=== PATIENT | female | born 1985 | race Caucasian/White ===

== ENCOUNTER 2023-07-28 08:10 | Emergency (ER) | payer OTHER, SELFPAY ==
--- NOTE | 2023-07-28 08:36 | DI.CT.S_ITS ---
PROCEDURE: CT ABDOMEN PELVIS W CON INDICATIONS: IV contrast only/periumbilical pain TECHNIQUE: After the administration of intravenous contrast, axial sections acquired from the lung bases to the pubic symphysis. Coronal and sagittal reformats were performed. For radiation dose reduction, the following was used: automated exposure control, adjustment of mA and/or kV according to patient size. COMPARISON: None. FINDINGS: Image quality: Diagnostic. Superior portions of the liver are outside the field of view. Lower Chest: Asymmetric elevation of the right hemidiaphragm. No pleural effusion. Possible pectus deformity. ABDOMEN: Liver: No solid mass. Superior portions of the liver are outside the field of view. Gallbladder: Decompressed. No calcified gallstones. Biliary ducts: No biliary dilation. Pancreas: No ductal dilation. Spleen: Size is within normal limits. Adrenal Glands: No adrenal nodules. Kidneys and Ureters: No hydronephrosis. No solid mass. No complex renal cystic lesion which requires follow up. Stomach and Bowel: Normal colonic caliber, without significant wall thickening. The appendix is not dilated. Peritoneum: No abnormal intraperitoneal fluid. No free air. Ventral Wall: Tiny fat containing umbilical hernia suspected. No periumbilical inflammatory change or fluid collection. Abdominal Nodes: No retroperitoneal or mesenteric adenopathy by size criteria. Vessels: Aorta and inferior vena cava are normal in size. PELVIS: Pelvic Organs: Uterus is absent. Bladder: No stone. Pelvic Nodes: No enlarged lymph nodes. Miscellaneous: No inguinal hernias are seen. Bones: No aggressive osseous abnormality. IMPRESSION: No acute abnormality identified. No free fluid. Tiny fat containing umbilical hernia suspected. Dictated by: Christian Ahmadi M.D. on 07/28/2023 at 9:36 Approved by: Christian Ahmadi M.D. on 07/28/2023 at 9:43
[2023-07-28 08:38] VITALS: BP 117/66; PULSE 78; RESP 19; TEMP 36.8; O2SAT 96; BMI 26.1
--- NOTE | 2023-07-28 08:38 | ED.GENADULT ---
HPI - General Adult General Chief complaint: Abdominal Pain Stated complaint: thinks unbilical hernia/something weird in eye too Time Seen by Provider: 07/28/23 08:30 History of Present Illness HPI narrative: Patient here for right eye redness/tearing/discomfort. Patient states this started yesterday evening/this morning. Patient does wear contact lenses but has not been wearing them for the past few days. Last seen by Optometry 1 year ago for prescription were her eye glasses and contacts. Denies any injury or stress to the eye. Has not been sleeping with the contact lenses. They are daily contact lenses. Patient also complained 3 days of periumbilical discomfort. History of laparoscopic tubal ligation and hysterectomy. Hysterectomy was done about 2 years ago. She states it is possible that she does have a umbilical hernia from 1 of the port sites. No nausea or vomiting. No urinary complaints. Right eye is injected with watery discharge. She states she did have some crusting of the eyelashes this morning. Related Data Previous Rx's Medication Instructions Recorded moxifloxacin 0.5 % eye drops 1 drp EYE-RIGHT .2 hours #3 mL 07/28/23 Allergies Allergy/AdvReac Type Severity Reaction Status Date / Time No Known Drug Allergies Allergy Verified 07/28/23 08:47 Review of Systems Review of Systems Narrative: GENERAL: negative chills, fatigue, malaise, fever, sweats. HEENT: negative sinus pain, ear pain, sore throat, positive eye redness/discharge RESPIRATORY: negative dyspnea, cough CARDIOVASCULAR: negative chest pain, palpitations GASTROINTESTINAL: negative nausea, vomiting, positive abdominal pain : negative dysuria, frequency, hematuria MUSCULOSKELETAL: negative muscle or bony pain SKIN: negative rash, skin lesions NEUROLOGIC: negative weakness, numbness ROS Unobtainable: All systems reviewed & are unremarkable except as noted in HPI and below Patient History Social History Smoking Status: Never smoker Exam Narrative Exam Narrative: GENERAL: in no distress, not toxic not dyspneic HEAD: Normocephalic. EYES: Pupils equal round right eye exam does show injected sclera and conjunctiva, there is clear watery discharge. PERRLA/EOMI, patient has slight photophobic with funduscope. Proparacaine fluorescein Wood's lamp slit-lamp use for exam, there is fluorescein uptake at the 5 o'clock position of the cornea. It is about 2 mm in diameter. No foreign body seen. No dendritic lesions. Pain was relieved with proparacaine. Visual acuity with eyeglasses right eye 20/20, both eyes together 20/13. No pain with eye movement. ENT: Mucous membranes moist. NECK: Trachea midline. CARDIOVASCULAR: Regular rate and rhythm RESPIRATORY: Clear to auscultation. Breath sounds equal bilaterally. No wheezes, rales, or rhonchi. GASTROINTESTINAL: Abdomen soft, non-tender, abdomen is soft flat nontender. With sitting up/using abdominal muscles, no palpable hernia on the umbilicus. Bowel sounds are present. No peritoneal signs. EXTREMITIES: No gross deformities. BACK: No flank tenderness. NEURO: AOx4. SKIN: Warm and dry PSYCH: Not anxious, is cooperative Initial Vital Signs Initial Vital Signs: Vital Signs Temperature 98.3 F 07/28/23 08:38 Pulse Rate 78 07/28/23 08:38 Respiratory Rate 19 07/28/23 08:38 Blood Pressure 117/66 07/28/23 08:38 Pulse Oximetry 96 07/28/23 08:38 Oxygen Delivery Method Room Air 07/28/23 08:38 Course Orders Ordered: ED Orders 07/28/23 08:36 CT abdomen pelvis w con Stat 07/28/23 09:10 Complete Blood Count AUTO DIFF Stat Comprehensive Metabolic Panel Stat Discontinued Medications Fluorescein Sodium (Fluorescein 1 Mg Strip) 1 mg EYE-RIGHT NOW ONE Stop: 07/28/23 08:36 Last Admin: 07/28/23 09:17 Dose: 1 mg Documented By: SPF Sodium Chloride (Normal Saline 0.9%) 500 mls @ 1,000 mls/hr IV BOLUS ONE Stop: 07/28/23 09:05 Last Infusion: 07/28/23 10:14 Dose: Infused Documented By: Admin: 07/28/23 09:18 Dose: 1,000 mls/hr Documented By: SPF Ofloxacin (Ofloxacin 0.3% Ophth 5 Ml) 1 drops EYE-RIGHT NOW ONE Stop: 07/28/23 08:56 Last Admin: 07/28/23 09:32 Dose: 1 drop Documented By: SPF Proparacaine HCl (Proparacaine 0.5% Ophth [place]) 1 drops EYE-RIGHT NOW ONE Stop: 07/28/23 08:36 Last Admin: 07/28/23 08:45 Dose: 1 drop Documented By: BAM Vital Signs Vital signs: Vital Signs - 8 hr 07/28/23 08:38 07/28/23 09:30 07/28/23 10:00 Temperature 98.3 F Pulse Rate 78 60 67 Respiratory Rate 19 16 Blood Pressure 117/66 Pulse Oximetry 96 100 100 Oxygen Delivery Method Room Air Room Air 07/28/23 10:00 07/28/23 10:30 07/28/23 10:30 Temperature Pulse Rate 57 L Respiratory Rate Blood Pressure 109/62 106/64 Pulse Oximetry 100 Oxygen Delivery Method 07/28/23 10:47 Temperature 97.9 F Pulse Rate 70 Respiratory Rate 16 Blood Pressure 106/64 Pulse Oximetry 100 Oxygen Delivery Method Room Air Medical Decision Making Lab Data 07/28/23 09:10 07/28/23 09:10 Labs: Lab Results 07/28/23 Range/Units 09:10 WBC 4.6 (4.5-11.0) X10^3/uL RBC 4.99 (4.0-5.2) X10^6/uL Hgb 14.9 (12.0-16.0) g/dL Hct 43.7 (36-46) % MCV 87.6 (80-100) fL MCH 29.9 (26-34) PG MCHC 34.1 (30-36) % RDW 12.8 (11.6-14.8) % Plt Count 187 (150-400) X10^3/uL Neut % (Auto) 56.6 (50-75) % Lymph % (Auto) 36.1 (25-40) % [place] % (Auto) 4.7 (3-14) % Eos % (Auto) 1.8 L (2-4) % Baso % (Auto) 0.8 (0-2) % Neut # (Auto) 2600 (9290-0415) /uL Lymph # (Auto) 1600 (8884-0498) /uL [place] # (Auto) 200 (0-900) /uL Eos # (Auto) 100 (0-450) /uL Baso # (Auto) 0 (0-100) /uL Sodium 137 (137-145) mmol/L Potassium 4.4 (3.4-5.1) mmol/L Chloride 105 (98-107) mmol/L Carbon Dioxide 29 (22-32) mmol/L BUN 14 (7-17) mg/dL Creatinine 0.71 (0.52-1.04) mg/dL Estimated GFR > 60 (>60) mL/min BUN/Creatinine Ratio 19.7 (6-22) Glucose 96 (70-100) mg/dL Calcium 9.4 (8.4-10.2) mg/dL Total Bilirubin 1.0 (0.2-1.3) mg/dL AST 22 (14-36) IU/L ALT 14 (<35) IU/L Alkaline Phosphatase 59 (38-126) U/L Total Protein 8.2 (6.3-8.2) g/dL Albumin 4.7 (3.5-5.0) g/dL Globulin 3.5 (1.7-4.1) g/dL Albumin/Globulin Ratio 1.3 (1.0-2.8) Imaging Data CT scan - abdomen/pelvis: Radiologist's Impression: [place] [address] CT Scan Report Signed Patient: Bekah Haney MR#: [id number] : 1985 Acct:[id number] Age/Sex: 37 / F Date of Service: 07/28/23 Loc: ED Accession Number: [id number] Procedure: CT abdomen pelvis w con Ordering Provider: Arnulfo Zamora MD PROCEDURE: CT ABDOMEN PELVIS W CON INDICATIONS: IV contrast only/periumbilical pain TECHNIQUE: After the administration of intravenous contrast, axial sections acquired from the lung bases to the pubic symphysis. Coronal and sagittal reformats were performed. For radiation dose reduction, the following was used: automated exposure control, adjustment of mA and/or kV according to patient size. COMPARISON: None. FINDINGS: Image quality: Diagnostic. Superior portions of the liver are outside the field of view. Lower Chest: Asymmetric elevation of the right hemidiaphragm. No pleural effusion. Possible pectus deformity. ABDOMEN: Liver: No solid mass. Superior portions of the liver are outside the field of view. Gallbladder: Decompressed. No calcified gallstones. Biliary ducts: No biliary dilation. Pancreas: No ductal dilation. Spleen: Size is within normal limits. Adrenal Glands: No adrenal nodules. Kidneys and Ureters: No hydronephrosis. No solid mass. No complex renal cystic lesion which requires follow up. Stomach and Bowel: Normal colonic caliber, without significant wall thickening. The appendix is not dilated. Peritoneum: No abnormal intraperitoneal fluid. No free air. Ventral Wall: Tiny fat containing umbilical hernia suspected. No periumbilical inflammatory change or fluid collection. Abdominal Nodes: No retroperitoneal or mesenteric adenopathy by size criteria. Vessels: Aorta and inferior vena cava are normal in size. PELVIS: Pelvic Organs: Uterus is absent. Bladder: No stone. Pelvic Nodes: No enlarged lymph nodes. Miscellaneous: No inguinal hernias are seen. Bones: No aggressive osseous abnormality. IMPRESSION: No acute abnormality identified. No free fluid. Tiny fat containing umbilical hernia suspected. Dictated by: Christian Ahmadi M.D. on 07/28/2023 at 9:36 Approved by: Christian Ahmadi M.D. on 07/28/2023 at 9:43 MDM Narrative Medical decision making narrative: Patient here for right eye redness/tearing/discomfort. Patient states this started yesterday evening/this morning. Patient does wear contact lenses but has not been wearing them for the past few days. Last seen by Optometry 1 year ago for prescription were her eye glasses and contacts. Denies any injury or stress to the eye. Has not been sleeping with the contact lenses. They are daily contact lenses. Patient also complained 3 days of periumbilical discomfort. History of laparoscopic tubal ligation and hysterectomy. Hysterectomy was done about 2 years ago. She states it is possible that she does have a umbilical hernia from 1 of the port sites. No nausea or vomiting. No urinary complaints. Right eye is injected with watery discharge. She states she did have some crusting of the eyelashes this morning. After history and exam proparacaine fluorescein slit-lamp Wood's lamp visual acuity, CBC CMP CT abdomen pelvis normal saline MDM Medical records reviewed: No recent visit for this complaint Differential considered: Includes but not limited to corneal abrasion foreign body/ulceration, appendicitis umbilical hernia Lab Test results independently reviewed as above. Pertinent findings: WBC 4.6 hemoglobin 14.9 sodium 137 potassium 4.4 AST 22 ALT 14 Imaging studies independently reviewed: CT abdomen pelvis no acute finding, possible small fat containing umbilical hernia Consultations: 10:30 a.m. spoke with [facility] ophthalmology Dr. Todd, she would like patient to switch over to moxifloxacin 2 drops every 2 hours for 48 hours including nighttime. Her office will call patient tomorrow to make appointment within 48 hours to be seen. May use artificial tears as well. I did give her patient's correct phone number [phone], transfer center also wrote this down. Treatments: Ofloxacin eyedrops/normal saline Re-evaluations: 10:11 a.m.. Updated patient results. Her eye discomfort feels much better she states. Reviewed results with her however still awaiting for [facility] ophthalmology services to call back 10:42 a.m.. Updated patient might discussion with ophthalmology services. She will have to get up in the middle of the night every 2 hours for the eyedrops. She understands. Office call her tomorrow. Dr. Elena lagos is not on-call but sometimes they can help out as a backup. Work note provided. Pain is controlled. She desires discharge home Discussion: Appropriate for discharge home for follow up with Ophthalmology and General surgery Services. Antibiotics have been started. Pain is controlled. Return precautions reviewed with patient. She is very comfortable with treatment plan. She desires discharge home Diagnosis: Corneal ulcer/umbilical hernia Discharge Plan Departure Patient Disposition: Home Clinical Impression: Corneal ulcer of right eye Hernia, umbilical Qualifiers: Obstruction and gangrene presence: without obstruction or gangrene Qualified Code(s): K42.9 - Umbilical hernia without obstruction or gangrene Instructions: DI for Ventral Hernia, DI for Corneal Ulcer Activity Restrictions/Additional Instructions: Please call provided general surgery office with Dr. Person regarding the fat containing umbilical hernia for continued monitoring. No surgery indicated at this time. Exam and CT scan imaging is reassuring at this time as well as blood work. [facility] ophthalmology services has been contacted today. They will call you on your cell phone to be seen in their office within the next 48 hours. Prescription antibiotic drops has been printed for you to continue today. You must place 1 drop to the right eye every 2 hours for the next 48 hours until office appointment time. These are the instructions by ophthalmology services. You must get up at nighttime for me to sleep. You may also use [id number] artificial tears for comfort. Do not wear your contact lenses until instructed by ophthalmology services. As a backup follow up provider ophthalmology services, Dr. Elena lagos office may be able to help, call them in the morning Prescriptions: New moxifloxacin 0.5 % drops 1 drp EYE-RIGHT .2 hours Qty: 3 0RF Rx Instructions: Place 1 drop in the right eye every 2 hours for the next 48 hours. Referrals: Elena Lagos MD [Physician] - Patricia Person MD [Physician] - Provider,Amy BURNS [Primary Care Provider] - Stand Alone Forms: Patient Portal/API, Work Release Note
[2023-07-28] MEDS: PROPARACAINE 0.5% OPHTH SOL 1 DROPS EYE-RIGHT (08:45)
[2023-07-28 09:15] LABS: Add Manual Diff / Slide Review NO; Basophils Absolute Auto 0 /uL (0-100); Basophils Percent Auto 0.8 % (0-2); Eosinophils Absolute Auto 100 /uL (0-450); Eosinophils Percent Auto 1.8 % (2-4); Hematocrit 43.7 % (36-46); Hemoglobin 14.9 g/dL (12.0-16.0); Lymphocytes Absolute Auto 1600 /uL (1100-4500); Lymphocytes Percent Auto 36.1 % (25-40); Mean Corpuscular HGB Conc 34.1 % (30-36); Mean Corpuscular Hemoglobin 29.9 PG (26-34); Mean Corpuscular Volume 87.6 fL (80-100); Monocytes Absolute Auto 200 /uL (0-900); Monocytes Percent Auto 4.7 % (3-14); Neutrophils Absolute Auto 2600 /uL (1500-7000); Neutrophils Percent Auto 56.6 % (50-75); Platelet Count 187 X10^3/uL (150-400); Red Blood Cell Count 4.99 X10^6/uL (4.0-5.2); Red Cell Distribution Width 12.8 % (11.6-14.8); White Blood Cell Count 4.6 X10^3/uL (4.5-11.0)
[2023-07-28] MEDS: FLUORESCEIN 1 MG STRIP EYE-RIGHT (09:17)
[2023-07-28] MEDS: SODIUM CHLORIDE 0.9% 500 ML 1000 ML IV (09:18)
[2023-07-28 09:27] LABS: Alanine Aminotransferase 14 IU/L (<35); Albumin 4.7 g/dL (3.5-5.0); Albumin Globulin Ratio 1.3 (1.0-2.8); Alkaline Phosphatase 59 U/L (38-126); Aspartate Aminotransferase 22 IU/L (14-36); BUN Creatinine Ratio 19.7 (6-22); Blood Urea Nitrogen 14 mg/dL (7-17); Calcium 9.4 mg/dL (8.4-10.2); Carbon Dioxide 29 mmol/L (22-32); Chloride 105 mmol/L (98-107); Estimated Glomerular Filt Rate > 60 mL/min (>60); Globulin 3.5 g/dL (1.7-4.1); Glucose 96 mg/dL (70-100); HEMOLYSIS < 15 (0-50); Potassium 4.4 mmol/L (3.4-5.1); Sodium 137 mmol/L (137-145); Total Protein 8.2 g/dL (6.3-8.2)
[2023-07-28 09:30] VITALS: PULSE 60; RESP 16; O2SAT 100
[2023-07-28] MEDS: OFLOXACIN 0.3% OPHTH 5 ML 1 DROPS EYE-RIGHT (09:32)
[2023-07-28 10:00] VITALS: BP 109/62; PULSE 67; O2SAT 100
[2023-07-28 10:30] VITALS: BP 106/64; PULSE 57; O2SAT 100
[2023-07-28 10:47] VITALS: BP 106/64; PULSE 70; RESP 16; TEMP 36.6; O2SAT 100
== END 2023-07-28 10:47 | disposition home or self-care (01) ==
PROVIDERS: Emergency Provider Emergency Medicine
DX: H16.001 Unspecified corneal ulcer, right eye (principal); K42.9 Umbilical hernia without obstruction or gangrene
CPT/HCPCS: 36415; 74177; 80053; 85025; 99284; Q9967

== ENCOUNTER 2023-10-02 06:51 | Day surgery (SDC) | payer OTHER, SELFPAY ==
[2023-10-01 14:57] VITALS: BMI 25.1
[2023-10-02] VITALS (7 sets, daily range): BP systolic 94–115; BP diastolic 60–72; PULSE 60–73; RESP 14–18; TEMP 36.5–36.9; O2SAT 95–99; BMI 25.1
--- NOTE | 2023-10-02 08:26 | PM.HP.1 ---
History of Present Illness History of Present Illness Date Patient Seen: 10/02/23 Time Patient Seen: 08:26 Chief complaint: SDC Narrative: 38F here for elective umbilical hernia repair. No interval change in health. PFSH Surgical History H/O: hysterectomy History of salpingectomy History of ankle surgery Family History Mother A-fib Brother Thyroid cancer Social History marital status: number of children: 2 household members: spouse and children lives independently: Yes occupational status: employed Smoking Status: Never smoker alcohol intake: current substance use type: does not use Meds Home Medications and Allergies Home Medications Medication Instructions Recorded Confirmed Type Probiotic PO 08/16/23 08/16/23 History multivitamin PO 08/16/23 08/16/23 History omega PO 08/16/23 History Allergies Allergy/AdvReac Type Severity Reaction Status Date / Time No Known Drug Allergies Allergy Verified 08/16/23 09:05 Exam Vital Signs (past 8 hours): - 10/02/23 07:15 10/02/23 07:34 Temperature 98.5 F Pulse Rate 60 Respiratory Rate 16 Blood Pressure 94/60 102/61 Pulse Oximetry 99 Oxygen Delivery Method Room Air Oxygen Delivery Method Room Air Narrative Exam Narrative: Gen-Adult woman alert and oriented Chest-Non labored resp Abdomen-Soft umbilical hernia reducible Assessment & Plan Assessment and plan (1) Umbilical hernia: Qualifiers: Obstruction and gangrene presence: without obstruction or gangrene Qualified Code(s): K42.9 - Umbilical hernia without obstruction or gangrene Status: Acute Assessment & Plan narrative: 38F with symptomatic umbilical hernia here for elective repair. Overview of the operation discussed. Operative risks benefits alternative reviewed and she provides her consent to proceed.
[2023-10-02] MEDS: LACTATED RINGERS 1,000 ML 21 ML IV (08:30)
[2023-10-02] MEDS: CEFAZOLIN 2 GM/100 ML PREMIX 100 ML IV (08:35)
--- NOTE | 2023-10-02 08:35 | SUR.OPER ---
Supine on padded OR bed, head on pillow, arms secured on padded arm boards at <90 degrees abduction, legs uncrossed, safety belt at thigh, tape over blanket over lower legs.
[2023-10-02] MEDS: ACETAMINOPHEN IV 1,000 MG/100 ML VIAL 400 MG IV (08:45)
[2023-10-02] MEDS: BUPIVACAINE 0.25% (PF) VIAL 30 ML INJ (08:50)
--- NOTE | 2023-10-02 09:32 | PM.OP.1 ---
Operative Date/Time/Diagnoses Date of procedure: 10/02/23 Time of procedure: 09:33 Pre-op diagnosis: Umbilical hernia Post-op diagnosis: same Procedure & Clinicians Procedure: open umbilical hernia repair Same procedure as scheduled: Yes Indications: symptomatic reducible umbilical hernia Surgeon: Lamont Drake Click Yes if Unassisted: Yes Anesthesia Type: General Operative Notes Findings: 1.5 cm fascial defect containing omentum Specimen(s): none sent Estimated Blood Loss (mL): 10 Procedure in detail: Patient was brought to the operating room placed supine on the table. Bilateral lower extremity compression devices were applied. General anesthesia was induced and they were intubated with an endotracheal tube. They received 2 g of Ancef prior to skin incision. They were prepped and draped in sterile fashion. A time-out was performed. A curvilinear incision was made inferior to the umbilicus. The subcutaneous tissues were divided. The umbilical hernia was identified and the hernia sac was dissected off the umbilical skin and circumferentially off of the fascia defect. The hernia sac was sharply opened and contained viable omentum. The omentum was reduced back into the abdomen. Using blunt dissection I carefully carefully freed the hernia sac from beneath the fascia defect in order to accomodate the mesh. The fascia defect was 1.5 cm in maximal diameter. A Bard Ventralex ST hernia patch 4 cm was inserted beneath the fascia defect and above the peritoneum in a sublay position. The mesh was anchored in multiple locations using Ethibond suture to the fascia and the fascial defect was closed over the mesh. The umbilical skin was tacked to the subcutaneous tissues and then the remainder of the subcutaneous tissues were reapproximated using 3 0 Vicry,l skin closed with 4 0 Monocryl followed by the application of Dermabond. Sponge instrument count at the end of the operation was correct. Patient tolerated procedure well was extubated and transferred to postoperative care unit in stable condition. Complications: none Post-operative Condition: stable Disposition: same day surgery
== END 2023-10-02 10:06 | disposition home or self-care (01) ==
PROVIDERS: Referring Provider Surgery; Visit Provider Surgery
PROC: (CPT 49591; principal; 2023-10-02 08:15)
DX: K42.9 Umbilical hernia without obstruction or gangrene (principal)
CPT/HCPCS: 49591; J0136; J0690; J1100; J1885; J2250; J2405; J2704; J3010